=== PATIENT | female | born 1990 | race Caucasian/White ===

== ENCOUNTER → 2017-07-12 07:41 | Outpatient (CLI) | payer OTHER, SELFPAY ==
[2017-07-12 09:21] LABS: hCG Titer Quant., Serum 12537 mIU/mL (<9 non-preg)
== END ==
PROVIDERS: Family Provider Internal Medicine; PCP Internal Medicine; Visit Provider Obstetrics & Gynecology
DX: O20.0 Threatened abortion (principal); Z3A.00 Weeks of gestation of pregnancy not specified
CPT/HCPCS: 36415; 84702

== ENCOUNTER → 2017-07-20 09:10 | Outpatient (CLI) | payer OTHER, SELFPAY ==
[2017-07-20 10:03] LABS: hCG Titer Quant., Serum 23769 mIU/mL (<9 non-preg)
== END ==
PROVIDERS: Family Provider Internal Medicine; PCP Internal Medicine; Visit Provider Obstetrics & Gynecology
DX: O20.0 Threatened abortion (principal); Z3A.00 Weeks of gestation of pregnancy not specified
CPT/HCPCS: 36415; 84702

== ENCOUNTER → 2017-11-15 19:11 | Outpatient (CLI) | payer OTHER, SELFPAY ==
[2017-11-15 21:17] LABS: hCG Titer Quant., Serum 10 mIU/mL (<9 non-preg)
== END ==
PROVIDERS: Visit Provider Obstetrics & Gynecology
DX: O20.0 Threatened abortion (principal)
CPT/HCPCS: 36415; 84702

== ENCOUNTER → 2017-11-17 10:30 | Outpatient (CLI) | payer OTHER, SELFPAY ==
[2017-11-17 11:34] LABS: hCG Titer Quant., Serum 30 mIU/mL (<9 non-preg)
== END ==
PROVIDERS: Family Provider Internal Medicine; PCP Internal Medicine; Visit Provider Obstetrics & Gynecology
DX: O20.0 Threatened abortion (principal)
CPT/HCPCS: 36415; 84702

== ENCOUNTER → 2017-11-22 16:45 | Outpatient (CLI) | payer OTHER, SELFPAY ==
--- NOTE | 2017-11-22 16:45 | DT_ITS ---
This patient was seen during an EMR downtime November 19, 2017 - November 26, 2017. This patient may have a combination of paper and electronic documentation or all paper documentation. All documentation is viewable within the e-chart portion of [employer] for each patient visit.
[2017-11-27 01:27] LABS: hCG Titer Quant., Serum 31 mIU/mL (<9 non-preg)
== END ==
PROVIDERS: Family Provider Internal Medicine; PCP Internal Medicine; Visit Provider Obstetrics & Gynecology
DX: O09.299 Supervision of pregnancy with other poor reproductive or obstetric history, unspecified trimester (principal); Z3A.00 Weeks of gestation of pregnancy not specified
CPT/HCPCS: 36415; 84702

== ENCOUNTER → 2017-11-28 13:59 | Outpatient (CLI) | payer OTHER, SELFPAY ==
[2017-11-28 15:31] LABS: hCG Titer Quant., Serum 3 mIU/mL (<9 non-preg)
== END ==
PROVIDERS: Family Provider Internal Medicine; PCP Internal Medicine; Visit Provider Obstetrics & Gynecology
DX: O20.0 Threatened abortion (principal)
CPT/HCPCS: 36415; 84702

== ENCOUNTER 2018-09-15 21:38 | Emergency (ER) | payer OTHER, SELFPAY ==
[2018-09-15 21:39] VITALS: BP 112/64; PULSE 88; RESP 24; TEMP 36.8; O2SAT 100; BMI 24.4
--- NOTE | 2018-09-15 21:52 | ED.RN ---
CALLED FOR EKG PER RN REQUEST, NO OLD EKGS IN MUSE
--- NOTE | 2018-09-15 22:08 | EKG12_ITS ---
Test Reason : CP Blood Pressure : / mmHG Vent. Rate : 080 BPM Atrial Rate : 080 BPM P-R Int : 144 ms QRS Dur : 066 ms QT Int : 360 ms P-R-T Axes : 043 050 -14 degrees QTc Int : 415 ms Normal sinus rhythm Possible Left atrial enlargement T wave abnormality, consider inferior ischemia Abnormal ECG Confirmed by OLEG HORAN, CARLEEN ([id number]), news editor VAHE JIANG ([id number]) on 09/17/2018 1:32:23 PM Referred By: MISSY/KATHI Confirmed By:CARLEEN DEJESUS MD
--- NOTE | 2018-09-15 22:10 | RAD_ITS ---
STUDY: X-RAY CHEST REASON FOR EXAM: Female, 28 years old. Chest pain. TECHNIQUE: Single frontal view of the chest. COMPARISON: None. FINDINGS: There is elevation of the right hemidiaphragm. There is no focal consolidation. Normal size heart. Normal mediastinum and gary. Normal visualized pulmonary arteries. Normal visualized aortic arch and descending thoracic aorta. Normal visualized thoracic spine. Normal visualized ribs, clavicles, and shoulders. There is no demonstrated abnormality of the visualized soft tissue structures of the upper abdomen. RAD/Chest 1 View (Portable) IMPRESSION: No acute cardiopulmonary process. Electronically Signed: Cherri Ross MD at 22:50 EDT Tel , Service support ,
[2018-09-15 22:34] LABS: Absolute Lymphocyte Count 2.12 X10^3/ul (0.83-4.51); Absolute Neutrophil Count 5.7 X10^3/uL (2.0-7.7); Basophil# 0.02 X10^3/uL; Basophil% 0.2 % (0-1); Eosinophil# 0.07 X10^3/uL; Eosinophils% 0.8 % (0-5); Hematocrit 34.4 % (37-47); Hemoglobin 11.5 g/dl (12.0-15.0); Lymphocyte # 2.12 X10^3/ul (4.0); Lymphocyte % 24.2 % (19-41); Mean Corp Hgb Conc 33.4 g/gl (32-36); Mean Corpuscular Hgb 30.7 pg (27.0-32.0); Mean Corpuscular Volume 91.7 fL (81-99); Monocyte# 0.81 X10^3/uL; Monocyte% 9.2 % (0-10); Neutrophil # 5.73 X10^3/uL (2.7-7.7); Neutrophil % 65.4 % (47-70); POSITIVE COUNT NO; POSITIVE DIFFERENTIAL NO; POSITIVE MORPHOLOGY NO; Platelet Count 178 K/mm3 (150-450); RBC Distribution Width SD 50.3 fl (35.1-43.9); Red Blood Count 3.75 M/mm3 (4.2-5.4); White Blood Count 8.8 K/mm3 (4.4-11.0)
[2018-09-15 22:46] LABS: Anion Gap 8 (5-15); BUN 7 mg/dL (7-18); BUN/Creat Ratio 11.2 RATIO (10-20); Calcium,Total 8.4 mg/dL (8.5-10.1); Chloride 107 mmol/L (98-107); Creatinine, Serum 0.62 mg/dL (0.55-1.02); EST Glomerular Filtration Rate 119 mL/min (>60); Est Glom Filt Rate - Afr Amer 144 mL/min (>60); Estimated Creatinine Clearance 100.12 ml/min; Glucose 113 mg/dL (74-106); Potassium 3.5 mmol/L (3.5-5.1); Sodium Level 137 mmol/L (136-145)
[2018-09-15 22:49] LABS: D-Dimer Quantitative (DVT/PE) 1.15 FEU/ug/m (0.27-0.49)
--- NOTE | 2018-09-15 22:50 | ED.RN ---
DR. YOO AWARE OF ELEVATED DDIMER.
--- NOTE | 2018-09-15 22:53 | CT_ITS ---
We are attempting to reach Eder Rm MD to discuss findings. An addendum with communication details will be sent when the communication is complete. STUDY: CTA CHEST REASON FOR EXAM: Female, 28 years old. Shortness of breath RADIATION DOSAGE (If Supplied By Facility): CTDIvol = ( 8.12 ) mGy, DLP = ( 239.87 ) mGycm TECHNIQUE: The examination was performed with the intravenous administration of 75ml IV Isovue 370. Post-processing of the angiographic images was performed, with multiplanar reformation and 3D reconstruction. Individualized dose optimization techniques were used for this CT. COMPARISON: None. FINDINGS: Evaluation for pulmonary embolism is limited due to bolus timing. More prominent within the lower lobes. There is no pulmonary embolism within the main pulmonary arteries or lobar pulmonary arteries. There is no upper lobe segmental or proximal subsegmental pulmonary embolism identified. Evaluation of the segmental and subsegmental pulmonary arteries within the lower lobes is limited. There are areas which may represent artifact versus filling defects. Normal thoracic aorta and visualized great vessels. There is no demonstrated aortic dissection. Normal heart and pericardium. Normal mediastinum. Normal hilar regions. Normal visualized trachea and bronchi. The lungs are well expanded. Right lower lobe 4 mm calcified nodule likely granuloma. Normal pleura. Normal chest wall structures. Mild scoliotic curvature. Slight angulation of the sternum in relation to the thoracic spine. Mild decreased AP diameter of the mid chest. Normal visualized upper abdomen. CT/CTA Chest W/WO Contrast IMPRESSION: Evaluation for pulmonary embolism is limited due to bolus timing. More prominent within the lower lobes. There is no pulmonary embolism within the main pulmonary arteries or lobar pulmonary arteries. There is no upper lobe segmental or proximal subsegmental pulmonary embolism identified. Evaluation of the segmental and subsegmental pulmonary arteries within the lower lobes is limited. There are areas which may represent artifact versus filling defects. No aortic aneurysm or dissection. Electronically Signed: Zi Paul, at 0:12 EDT Tel , Service support ,
[2018-09-15] MEDS: 0.9% Normal Saline 1,000 ML 999 ML IV (23:13)
[2018-09-16] VITALS: BP 104/63; PULSE 88; RESP 18; O2SAT 96
--- NOTE | 2018-09-16 00:28 | ED.VISSUMM ---
- ER Visit Summary Date of Service: 09/16/18 Chief Complaint: Right upper chest pain History of Present Illness: The patient is a 28 F medical history of pleurisy. Patient is 37 weeks . AB 2 with there is being miscarriages. She is never had a DVT or PE. Her sister had a DVT after surgery. Patient states that on Sunday she had right upper back pain is now come across and has been right upper chest pain for the last 2 days. It is pleuritic in nature. She took Tylenol without relief. She does feel like she is slightly short of breath with it. She denies any hemoptysis. No fever or chills. No cough. No leg pain or swelling. Physical Examination: Vital signs are stable. Initial blood pressure 112/64. Pulse ox 100% on room air no hypoxia and her heart rate is 88. He is in no distress. HEENT exam unremarkable. Neck nontender no lymphadenopathy. No JVD. Lungs clear to auscultation bilaterally. Heart regular rhythm rate about 80 no murmur. Chest wall nontender. Abdomen soft. Gravid uterus nontender. Normal bowel sounds no peritoneal nontender without edema. No cords. Test Results: CBC shows a white count of 8. Hemoglobin 1.5. Chemistries normal. Troponin normal. D-dimer elevated at 1.15. Initial EKG sinus rhythm rate 80 with inverted T waves in lead III, aVF, V2 and V3. No [place]. No old EKG available for comparison. Chest x-ray normal. Normal cardiac silhouette. No infiltrate. CTA of the chest had a bolus timing issue but the radiologist could not see any signs of a PE in the right upper lobe or anywhere else on the scan. It was slightly limited in the bases. Emergency Department Course and Treatment: Patient treated with a liter normal saline due to the contrast. Repeat exam she is doing well. She will be discharged home. Treatment Plan: At all for pain. Follow-up with SURVEY RESEARCH TEACHER. Disposition: Discharge Impression: Acute right upper pleuritic chest pain suspect secondary to pleurisy This note was generated with ArtSetters[employer] software. It may contain incorrect words, spelling, and punctuation that were not noted in review of the chart prior to signing ED Disposition - Plan for ED Patient: Referrals: Chitra Mercedes MD [Primary Care Provider] -
--- NOTE | 2018-09-16 00:32 | ED.DCSUM_ITS ---
- ER Visit Summary Date of Service: 09/16/18 Chief Complaint: Right upper chest pain History of Present Illness: The patient is a 28 F medical history of pleurisy. Patient is 37 weeks . AB 2 with there is being miscarriages. She is never had a DVT or PE. Her sister had a DVT after surgery. Patient states that on Sunday she had right upper back pain is now come across and has been right upper chest pain for the last 2 days. It is pleuritic in nature. She took Tylenol without relief. She does feel like she is slightly short of breath with it. She denies any hemoptysis. No fever or chills. No cough. No leg pain or swelling. Physical Examination: Vital signs are stable. Initial blood pressure 112/64. Pulse ox 100% on room air no hypoxia and her heart rate is 88. He is in no distress. HEENT exam unremarkable. Neck nontender no lymphadenopathy. No JVD. Lungs clear to auscultation bilaterally. Heart regular rhythm rate about 80 no murmur. Chest wall nontender. Abdomen soft. Gravid uterus nontender. Normal bowel sounds no peritoneal nontender without edema. No cords. Test Results: CBC shows a white count of 8. Hemoglobin 1.5. Chemistries normal. Troponin normal. D-dimer elevated at 1.15. Initial EKG sinus rhythm rate 80 with inverted T waves in lead III, aVF, V2 and V3. No [place]. No old EKG available for comparison. Chest x-ray normal. Normal cardiac silhouette. No infiltrate. CTA of the chest had a bolus timing issue but the radiologist could not see any signs of a PE in the right upper lobe or anywhere else on the scan. It was slightly limited in the bases. Emergency Department Course and Treatment: Patient treated with a liter normal saline due to the contrast. Repeat exam she is doing well. She will be discharged home. Treatment Plan: At all for pain. Follow-up with OPTICS MANUFACTURING TECHNICIAN. Disposition: Discharge Impression: Acute right upper pleuritic chest pain suspect secondary to pleurisy This note was generated with DogVac[employer]ation software. It may contain incorrect words, spelling, and punctuation that were not noted in review of the chart prior to signing ED Disposition - Plan for ED Patient: Referrals: Chitra Mercedes MD [Primary Care Provider] -
--- NOTE | 2018-09-16 00:32 | ED.DEP ---
ED Disposition - Plan for ED Patient: Disposition: Home or Assisted Living Instructions: ED Chest Pain Pleurisy Referrals: Chitra Mercedes MD [Primary Care Provider] - As Needed Marsha Montoya MD [STAFF PHYSICIAN] - As Needed Additional Instructions: Tylenol for pain. You may use limited Motrin.
[2018-09-16 00:46] VITALS: BP 109/64; PULSE 87; RESP 22; O2SAT 96
== END 2018-09-16 00:48 | disposition home or self-care (01) ==
PROVIDERS: Emergency Provider Emergency Medicine; Family Provider Internal Medicine; PCP Internal Medicine
DX: O26.893 Other specified pregnancy related conditions, third trimester (principal); R07.81 Pleurodynia; R06.02 Shortness of breath; R74.8 Abnormal levels of other serum enzymes; Z3A.37 37 weeks gestation of pregnancy
CPT/HCPCS: 71045; 71275; 80048; 84484; 85025; 85379; 93005; 96360; 96361; 99284; J7030; Q9967; A4216

== ENCOUNTER 2018-09-27 15:15 | Inpatient (IN) | payer OTHER, SELFPAY ==
[2018-09-27 15:41] VITALS: BMI 24.7
[2018-09-27 16:02] LABS: Absolute Neutrophil Count 6.9 X10^3/uL (2.0-7.7); Basophil# 0.02 X10^3/uL; Basophil% 0.2 % (0-1); Eosinophil# 0.04 X10^3/uL; Eosinophils% 0.4 % (0-5); Lymphocyte % 22.5 % (19-41); Mean Corp Hgb Conc 33.3 g/gl (32-36); Mean Corpuscular Hgb 30.5 pg (27.0-32.0); Mean Corpuscular Volume 91.6 fL (81-99); Mean Platelet Vol. 10.4 fl (6.2-12.0); Monocyte# 0.57 X10^3/uL; Monocyte% 5.8 % (0-10); Neutrophil # 6.91 X10^3/uL (2.7-7.7); Neutrophil % 70.7 % (47-70); Platelet Count 191 K/mm3 (150-450); RBC Distribution Width CV 14.9 % (11.6-14.6); RBC Distribution Width SD 50.3 fl (35.1-43.9); Red Blood Count 3.93 M/mm3 (4.2-5.4); White Blood Count 9.8 K/mm3 (4.4-11.0)
[2018-09-27 16:03] LABS: POSITIVE COUNT NO; POSITIVE DIFFERENTIAL NO; POSITIVE MORPHOLOGY NO
[2018-09-27] MEDS: Lactated Ringers 1,000 ML 50 ML IV ×3 (16:09→22:41)
--- NOTE | 2018-09-27 17:33 | PCM.HP.OB ---
History Date of Admission: 09/27/18 Final BILLY: 10/03/18 Final BILLY Source: US <20 weeks Gestational age: 39 Weeks and 1 Days History of this : This is a 28 year-old, @ 39.1 wks, SROM in office- clear. 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 Allergies No Known Allergies Allergy (Verified 09/15/18 21:41) Home Medications: Home Medications Vits [Prenatabs FA ] 1 tablet PO DAILY 05/11/14 Ferrous Sulfate [Iron] 1 mg PO DAILY 09/27/18 Smoking Status: Never smoker Alcohol: None Number of Fetus(es): 1 Heart Tracin mod mariaelena, + accels no decels TOCO Analysis: q2-3 min History Past Pregnancies: Past Pregnancies Delivery Date Name GA/Weeks Outcome Route Weight Infant Gender Labor Length Anesthesia Delivery Location Provider FOB Labs: A+, GBS neg, rub imm, HEP B neg, syphilis neg Expected Infant Delivery Method: Spontaneous Vaginal Review of Systems Constitutional: Denies: Anorexia Cardiovascular: Denies: Chest Pain Respiratory: Denies: Cough Physical Exam General: Alert, Oriented x3 Abdomen: Soft, Non Tender, Gravid Neurological: Cranial nerves II-XII grossly intact Estimated gestational size: Appropriate for gestational size Presentation: Cephalic Cervix Dilation (cm): 4 Station: -1 Effacement (%): 80 Assessment/Plan This is a 28 year-old, @ 39.1 wks, SROM in labor 1) admit to L&D 2) Monitor Fhr/TOco 3) anticipate 4) epidural if requested 5) pitocin if indicated
[2018-09-27] MEDS: fentaNYL-bupivacaine (epidural) 100 ML BAG EPIDURAL (19:30)
[2018-09-27] MEDS: Oxytocin 30 units/NS 500 ml 30 UNITS/500 ML IV.SOLN IV (21:45)
[2018-09-27] MEDS: Acetaminophen 325 MG Tablet PO (23:19)
--- NOTE | 2018-09-28 00:55 | PLAC_PTH ---
PATIENT: MAULIK REYNA I LOC: [facility] U#:[id number] AGE/SX: 28/F ROOM: WP003 RE09/27/[address]: Dr. Mandy Rahman, MDDOB: 1990 BED: 1 DIS: 09/29/2018 SPEC #: [id number] RECD: 09/28/18 03:22 STATUS: GENEVIEVE GILDA #: [id number] RICKY: 09/28/18 00:[address]: Mandy Rahman DEPT: SURGICAL PATHOLOGY RECD BY: Scooter Mendoza ENTERED: 09/30/18 13:03 SP TYPE: PLACENTA OTHR DR: Dr. Chitra Mercedes MD Tissues: Placenta, NOS Procedures: Surgery Specimen Level V HEADER OPERATION: Vaginal delivery PRE-OP DIAGNOSIS: Suspected triple I TISSUE SUBMITTED: Placenta MICROSCOPIC DIAGNOSIS Placenta: Placental disc - third trimester placenta (474 gm). Membranes - no pathologic diagnosis. Umbilical cord - three blood vessels and no pathologic diagnosis. SJ:zhou 10/01/18 MICROSCOPIC DESCRIPTION Slides are reviewed. GROSS DESCRIPTION SPECIMEN: PLACENTA / CLINICAL INFORMATION: A. Weight: 3.43 kg B. Gestational Age: 39 weeks C. Sex: Male PLACENTAL WEIGHT (POST FIXATION): 474 gm PLACENTAL DIMENSIONS: 24 x 14 x 2.5 cm PLACENTAL SHAPE: Disrupted and somewhat fragmented but appears complete. PLACENTAL WEIGHT FOR GESTATIONAL AGE: Within 10-99th percentile MEMBRANES - Present A. Insertion: Marginal B. Site of rupture from edge: At edge of placental disc C. Color of membrane: Maza-deluca D. Abnormalities: None UMBILICAL CORD - Present A. Color: Maza-deluca B. Insertion: Eccentric C. Length: 41 cm D. Diameter: 1.5 cm E. Number of vessels: Three F. Abnormalities: None PLACENTAL DISC - Present A. Color of surface: Maza-deluca B. surface abnormalities: None C. Maternal cotyledons: Intact with minimal tears D. Attached retro placental clot: No clot E. Cut surface: Dark red and spongy F. Lesions: None G. Separate clot: Absent SECTIONS SUBMITTED: 1. Umbilical cord ( end notched) 2. Membrane roll 3. Placental disc, and maternal surfaces 4. Placental disc, and maternal surfaces 5. Placental disc, and maternal surfaces AM:zhou 09/30/18 TC:4 CPT: 23802
[2018-09-28] MEDS: Oxytocin 30 units/NS 500 ml 30 UNITS/500 ML IV.SOLN 334 UNITS IV (00:57)
--- NOTE | 2018-09-28 01:18 | PCM.OPRPT ---
Vaginal Delivery Maternal Presentation: Spontaneous Rupture of Membranes Amniotic Membrane Rupture Type: - - spontaneous in office- ? high leak- still had large forebag Amniotic Fluid Description: Clear Final BILLY: 10/03/18 Gestational age: 39 Weeks and 2 Days Date of Procedure: 09/28/18 Pre-Operative Diagnosis: term gestation Post-Operative Diagnosis: live male infant, suspected triple I Surgery/ Procedure Performed: Spontaneous Vaginal Delivery Type of Anesthesia: Epidural Description of Procedure: of live male . Infant head and shoulders delivered with gentle downward traction and good maternal effort. vigorous at . placenta adherent to left cornua - removed manually to allow for complete delivery of placenta. pt temp prior to delivery 100.1F pt felt warm at manual removal- temp recheck was 101- Suspected triple I . will give 2 g ancef. Presentation: Vertex Placental Delivery Description: Manual Removal - stuck at left cornua Placenta Disposition: Sent to Pathology Cord Vessel Description: 3 Vessels Nuchal Cord Compression: Without compression Cord Entanglement: None Estimated Blood Loss: 250 Infant A gender: Male (1 minute): 8 (5 minute): 8 Episiotomy Description: None Laceration: Perineal Extension/lac - repaired with 3-0 rapide, 1st degree Medications given after delivery: IV Pitocin Complications: None
[2018-09-28] MEDS: Oxytocin 30 units/NS 500 ml 30 UNITS/500 ML IV.SOLN 167 UNITS IV (01:27)
[2018-09-28] MEDS: Ibuprofen 600 MG Tablet PO ×2 (01:50→14:27)
[2018-09-28] MEDS: Cefazolin 2 GM in 0.9% Normal Saline 100 ML IV (02:07)
[2018-09-28 03:23] LABS: Pathology Specimen OB SEE PATHOLOGY REPORT
[2018-09-28] MEDS: Methylergonovine 0.2 MG/ML Ampul IM ×2 (06:26→07:30)
--- NOTE | 2018-09-28 06:26 | NURSING ---
At 0540, pt requested to get up to bathroom and states she needed to void. Pt states she feels something coming out. Some half dollar sized clots noted, fundus firm U+1 and left of midline. Pt up to bathroom and voided 600cc, states she feels bladder is empty and reporting some dizziness. Pt to wheelchair after pad and underwear changed. Pt then moved to room 3. Pt's gown changed and then pt to bed from wheelchair. This RN had pt lay back to check bleeding. Fundus firm and large clots began to pass, equal to 75cc. This RN then contacted Angelina RN to come to room to assess bleeding. Pad changed and weighed 186cc. Dr. Camara then called and order received for methergine IM x1 and Dr. Camara will be around 0700. Trickling continued, new pad changed and weighed 132ml. Trickling continued, pad #4 weighed 20cc. total new blood loss equal to 413ml.
--- NOTE | 2018-09-28 07:00 | NURSING ---
0657 fundus massaged, firm u-1 and 236cc passed between bleeding and clots.
--- NOTE | 2018-09-28 07:15 | NURSING ---
Addendum entered by Deedee Arnold 09/28/18 07:38: Total EBL now 701cc Original Note: 0712 Dr. Camara on unit and updated that blood loss at [address] Camara in room to see pt. Manually removed several clots, will perform bedside US. 0701 Bedside US done. orders received, will watch bleeding.
--- NOTE | 2018-09-28 07:39 | PCM.PN.OB ---
Subjective: pt seen at bedside, doing well. pt reports good pain control. LOCHIA- passing clots and steady trickle of bleeding (i was notified by RN). pt denies CP, SOB ,dizziness. Breast feeding. Objective: Vaginal exam performed- Small clots expelled from lower uterine segment. Uterus firm on exam i did not feel any tissue remnants. Bedside ultrsaound performed- endometrial stripe thin - one area of hetergenous material - possible organized clot. Plan to continue to monitor- Give one more dose IM methergine. If bleeding persists today may consider OB curettage but at this time patient is stable and exam is not impressive. will continue with uterotonics. pt will get CBC at 10am. - Physical Exam General: Alert, Oriented x3 Abdomen: Soft, - - fundus firm- at level of umbilicus Extremities: No Calf Tenderness Neurological: Cranial nerves II-XII grossly intact Weight: 59.5 kg Body Mass Index (BMI) 24.7 Intake and Output for Last 24 Hours 09/26/18 09/27/18 09/28/18 23:59 23:59 23:59 Output Total 600 / 600 Balance -600 / -600 Laboratory Tests Past 24 Hrs 09/27/18 09/27/18 15:50 15:50 WBC 9.8 RBC 3.93 L Hgb 12.0 Hct 36.0 L MCV 91.6 MCH 30.5 MCHC 33.3 RDW 14.9 H RDW Differential 50.3 H Plt Count 191 MPV 10.4 Immature Gran % (Auto) 0.400 Neut % (Auto) 70.7 H Lymph % (Auto) 22.5 [place] % (Auto) 5.8 Eos % (Auto) 0.4 Baso % (Auto) 0.2 Absolute Neuts (auto) 6.9 Absolute Lymphs (auto) 2.20 Total Counted Not Reportable Blood Type A POSITIVE Antibody Screen NEGATIVE Medical Necessity - Tobacco Use Smoking Status: Never smoker Assessment/Plan PPD#1 - Suspect Triple I 1) continue to monitor bleeding- if does not slow with use of uterotonics may need to consider ob curettage but exam is unremarkable at this time 2) CBC 10am 3) IM methergine (x 2 total)- if needed will continue with PO 4) Monitor VS- had fever immediately after delivery s/p 2g ancef for manual removal and temp immediately pp 5) continue with Pain mgmt regimen
--- NOTE | 2018-09-28 07:42 | NURSING ---
Report given to Bong CHAVARRIA who is now assuming care.
[2018-09-28] MEDS: Acetaminophen 500 MG Tablet 1000 MG PO ×2 (09:50→20:28)
--- NOTE | 2018-09-28 09:55 | CASEMGMT ---
Social Work Brief Assessment - Labor and Delivery Unit Refer documentation below for further details. Date of Referral/Notification: 09/28/12 Time of Referral: 8:26a Referred By: NURSING Reason for Referral: HX OF PPD Date of Intervention: 09/28/18 Time of Intervention: 9:55A Informant: Medical record and mother of baby (MOB) History: MOB WITH HX OF PPD. STATES PRESCRIBED MEDICATION (DID NOT TAKE DURING ) AND WILL DISCUSS WITH DR. ZHANG WHEN APPROPRIATE TO RETURN ON MEDICATION SHE IS . MOB STATES KNOWS ALL SIGNS AND SYMPTOMS AND DOES NOT VOICE ANY CONCERNS. MOB DENIES ANY CURRENT DEPRESSION/ANXIETY. Assessment: MOB LIVES HOME WITH , SARA AND DAUGHTER JU. BOTH EMPLOYED AND WILL HAVE PROCESS CONTROL PROGRAMMER FOR BOTH CHILDREN FROM GRANDMOTHERS WHEN MOB RETURNS TO WORK. MOB REPORTS HAS ALL NEEDS MET FOR BABY. PRICING SPECIALIST IS DR. WADE. DISCUSSED CASE WITH NURSE. NO FURTHER NEEDS FROM THIS WORKER. Plan: HOME WITH FAMILY BEFORE. No further needs requested or indicated. -Radha Bradshaw, PATIENT ACCOUNTS CLERK, LEAD CARE MANAGER
[2018-09-28 10:00] VITALS: BP 103/64; PULSE 98; RESP 18; TEMP 37; O2SAT 97
[2018-09-28 10:26] LABS: Hematocrit 32.6 % (37-47); Hemoglobin 10.9 g/dl (12.0-15.0); Mean Corp Hgb Conc 33.4 g/gl (32-36); Mean Corpuscular Volume 92.6 fL (81-99); Mean Platelet Vol. 10.4 fl (6.2-12.0); Platelet Count 178 K/mm3 (150-450); RBC Distribution Width CV 14.9 % (11.6-14.6); RBC Distribution Width SD 49.2 fl (35.1-43.9); Red Blood Count 3.52 M/mm3 (4.2-5.4)
[2018-09-28 10:28] LABS: Scan Indicated on CBC? Y/N NO
[2018-09-28 12:00] VITALS: BP 101/61; PULSE 100; RESP 18; TEMP 37.6; O2SAT 97
[2018-09-28 16:19] VITALS: BP 99/59; PULSE 85; RESP 18; TEMP 36.9; O2SAT 97
[2018-09-28 20:30] VITALS: BP 99/54; PULSE 89; RESP 17; TEMP 36.9; O2SAT 97
[2018-09-29 02:00] VITALS: BP 92/62; PULSE 74; RESP 16; TEMP 36.6; O2SAT 97
[2018-09-29] MEDS: Senna/Docusate Sodium 1 Tablet PO (04:29)
[2018-09-29] MEDS: Ibuprofen 600 MG Tablet PO (04:30)
--- NOTE | 2018-09-29 07:59 | PCM.PN.OB ---
Subjective: pt seen at bedside, doing well. pt reports good pain control. lochia mild. Breast feeding well. - Physical Exam General: Alert, Oriented x3 Abdomen: Soft, Non Tender, Non-Distended, - - fundus firm Extremities: No Calf Tenderness Vital Signs Temp Pulse Resp BP Pulse Ox 97.9 F 74 16 92/62 97 09/29/18 02:00 09/29/18 02:00 09/29/18 02:00 09/29/18 02:00 09/29/18 02:00 Oxygen Delivery Method Room Air Weight: 59.5 kg Body Mass Index (BMI) 24.7 Intake and Output for Last 24 Hours 09/27/18 09/28/18 09/29/18 23:59 23:59 23:59 Output Total 1050 / 1050 Balance -1050 / -1050 Laboratory Tests Past 24 Hrs 09/28/18 10:15 WBC 15.0 H RBC 3.52 L Hgb 10.9 L Hct 32.6 L MCV 92.6 MCH 31.0 MCHC 33.4 RDW 14.9 H RDW Differential 49.2 H Plt Count 178 MPV 10.4 Medical Necessity - Tobacco Use Smoking Status: Never smoker Assessment/Plan PPD#1.5 (delivered 53 on 09/28/18) 1) dc home 2) instructions reviewed including bleeding precautions 3) pain mgmt
[2018-09-29 09:32] VITALS: BP 106/65; PULSE 86; RESP 18; TEMP 36.9; O2SAT 97
[2018-09-29 12:45] VITALS: BP 112/68; PULSE 78; RESP 18; TEMP 36.7; O2SAT 99
[2018-09-29 17:00] VITALS: BP 105/61; PULSE 80; RESP 18; TEMP 36.6; O2SAT 97
== END 2018-09-29 17:45 | disposition home or self-care (01) | DRG 807 ==
PROVIDERS: Admitting Provider Obstetrics & Gynecology; Family Provider Internal Medicine; PCP Internal Medicine; Referring Provider Obstetrics & Gynecology; Visit Provider Obstetrics & Gynecology
DX: O72.0 Third-stage hemorrhage (principal); O70.0 First degree perineal laceration during delivery; Z3A.39 39 weeks gestation of pregnancy; Z37.0 Single live birth
CPT/HCPCS: 59025; 59050; 85025; 85027; 86850; 86900; 88307; 99218; J7120; G0378

== ENCOUNTER 2019-03-23 07:43 | Emergency (ER) | payer OTHER, SELFPAY ==
[2019-03-23 07:44] VITALS: BP 102/68; PULSE 126; RESP 18; TEMP 37.6; O2SAT 99; BMI 18.8
--- NOTE | 2019-03-23 08:17 | RAD_ITS ---
STUDY: X-RAY CHEST REASON FOR EXAM: Female, 28 years old. Fever TECHNIQUE: PA and lateral views of the chest. COMPARISON: September 15, 2018 chest x-ray FINDINGS: The lower lungs are partially obscured by overlying breast tissue. The lungs are clear and expanded. There is no demonstrated pleural abnormality. Normal size heart. Normal mediastinum and gary. Normal visualized pulmonary arteries. Normal visualized aortic arch and descending thoracic aorta. Normal visualized thoracic spine. Normal visualized ribs, clavicles, and shoulders. There is no demonstrated abnormality of the visualized soft tissue structures of the upper abdomen. RAD/Chest PA and Lateral IMPRESSION: Normal x-ray examination of the chest. Electronically Signed: Jennifer Mckeon MD at 12:20 EDT Tel , Service support ,
--- NOTE | 2019-03-23 08:17 | CT_ITS ---
STUDY: CT BRAIN WITHOUT CONTRAST REASON FOR EXAM: Female, 28 years old. FEVER RADIATION DOSAGE (If Supplied By Facility): CTDIvol = ( 44.99 ) mGy, DLP = ( 745.49 ) mGycm TECHNIQUE: Transaxial CT imaging of the brain was performed without administration of intravenous contrast material. Individualized dose optimization techniques were used for this CT. COMPARISON: No relevant priors. FINDINGS: Normal soft tissue structures. Normal calvarium. Normal size ventricles and extra-axial spaces for the patient's age. Normal white matter tracts of the cerebral hemispheres. Normal basal ganglia and thalami. Normal brainstem. Normal cerebellum. There is no intracranial hemorrhage. There are no findings of an acute ischemic infarction. Normal visualized paranasal sinuses. CT/Brain/Head without Contrast IMPRESSION: Normal unenhanced CT scan of the brain. Electronically Signed: Fanny Stinson MD at 12:24 EDT Tel , Service support ,
--- NOTE | 2019-03-23 08:22 | ED.DCSUM_ITS ---
History of Present Illness Chief Complaint: Fever Informant: Patient, Family Onset: Weeks Current Severity: Mild Narrative: Patient is been complaining of fever body aches posterior cervical adenopathy for about 2 weeks, she is been evaluated at urgent care had a negative Monospot at one point time she was put on amoxicillin, 3 days later she developed a skin rash that was discontinued, she continued to have posterior cervical adenopathy temperatures to 102, headaches body aches, she is been taking Tylenol, Is had no chest pain no abdominal pain normal bowel bladder habits. She indicates she has a 5-month-old child at home who she is been breast-feeding without difficulty and yesterday she noticed that her right breast seems slightly sore and thought she saw some fluid come out with a milk that could be pus she spoke with her crozer operator and has been on dicloxacillin for 24 hours, she indicates she is persisting and having the body aches the posterior neck discomfort and the fevers and she presents for evaluation. In addition about a month ago her 5-month-old child presented to [facility] with bloody diarrhea and was found to have salmonella treated, mother has no abdominal pain normal bowel bladder habits and no real past history except as above Past Medical History - Allergies and Home Meds Allergies/Adverse Reactions: Allergies No Known Allergies Allergy (Verified 03/23/19 07:47) Primary Care Physician: Chitra Mercedes MD [Primary Care Provider] - Past Medical History: - - Includes as above Smoking Status: Never smoker Review of Systems General: Reports: Fever, Malaise. Denies: Chills, Sweats Eyes: Denies: Visual changes - bilaterally, Diplopia ENT: Reports: - - She has posterior auricular lymph nodes that are palpable cervical as well. Denies: Rhinorrhea, Sore throat Cardiovascular: Denies: Chest pain, Palpitations Respiratory: Denies: Dyspnea, Cough, Dyspnea on exertion Gastrointestinal: Denies: Abdominal pain, Nausea, Vomiting, Diarrhea, Melena, Hematochezia Genitourinary: Denies: Dysuria, Hematuria, Frequency Musculoskeletal: Reports: - - Right breast pain,. Denies: Back pain, Extremity Pain Skin: Denies: Rash, Wounds Neurological: Denies: Headache, Weakness, Numbness Physical Exam Vital Signs/Narrative: Vital Signs Temp Pulse Resp BP Pulse Ox 03/23/19 07:44 99.6 F H 126 H 18 102/68 99 General: Well nourished, Well developed, No Acute Distress Head: Normocephalic, Atraumatic Eyes: Perrl, EOMI ENT: Moist mucous membranes, No rhinorrhea, - - Has palpable posterior cervical and postauricular lymph nodes there about no more than half a centimeter there on both right and left she has full range of motion of her neck there is really no midline tenderness, there is no meningismus Neck: Supple, Nontender, - - There is positive adenopathy as above with no meningismus, she is sitting in a brightly lit room she is moving her eyes left and right full range of extraocular muscle movements without pain Cardiovascular: Regular rate, Regular rhythm, No murmurs Respiratory: No distress, CTA bilaterally, Chest nontender Abdomen: Soft, Nontender, Nondistended, Normal bowel sounds Back: Nontender, Normal Inspection Extremities: Nontender, No edema Skin: Normal color, No rash Neurological: Alert, Oriented x3, Cranial nerves II-XII grossly intact, Normal Strength, Normal Sensation, - - Her neurologic exam is normal there is no signs of meningitis. Negative for: Confused, Disoriented Psychological: Normal affect, Normal Mood Diagnostic/Tx/Re-eval - Medical Decision Making She is had 2 weeks of symptoms as above she has this right breast soreness drainage process that began yesterday but the other symptoms predate all the above she had exposure to a child who was diagnosed with Salmonella but she has no symptoms, at this time given all the above differentials rather extensive there is no signs of meningitis no signs of sepsis symptoms for 2 weeks at this time conference with screening labs are obtained, CT chest x-ray UA culture blood culture The patient screening labs are all generally unremarkable, my review of the two- view chest x-ray and head CT showed nothing acute see those formal reports, we d id send a flu swab that is negative, we spent a respiratory panel viral swab that result is not available per staff that will be available tomorrow I explained this to the patient, I also explained all of her test results with her we discussed the differential the causes of posterior cervical adenopathy we discussed the concept of meningitis, she has full range of motion of her neck, she has no meningismus just pain with palpation of the posterior cervical lymph nodes, she has no photophobia sitting in a brightly lit room without difficulty, she has full range of motion of her extraocular muscle movements without pain, we discussed lumbar puncture and she declined that , she indicates she is comfortable with discharge home to follow-up with her outpatient providers understand she will require additional management we did discuss if the adenopathy persists she may require a biopsy as a differential of cervical adenopathy in general is quite extensive This time the exact etiology of all of the above remains unclear, she will continue to use the dicloxacillin for the right breast soreness and drainage and she will see her crozer operator for that and otherwise follow-up with her outpati ent providers PCP for further management and return for change in symptoms Home stable Final impression Post cervical adenopathy, neck discomfort, febrile illness, etiology unclear, right breast inflammation infection ED Disposition - Plan for ED Patient: Diagnosis: Cervical adenopathy Instructions: FEBRILE ILLNESS, Uncertain Cause (Adult) Referrals: Chitra Mercedes MD [Primary Care Provider] - Additional Instructions: Please follow-up with your outpatient providers tomorrow, ask them to check the respiratory viral screen results that should be available tomorrow
[2019-03-23] MEDS: 0.9% Normal Saline 1,000 ML 1000 ML IV (09:04)
[2019-03-23] MEDS: proCHLORPERazine 10 MG/2 ML Vial IV (09:05)
[2019-03-23] MEDS: morphine 8 MG/ML Syringe IV (09:05)
[2019-03-23] MEDS: DiphenhydrAMINE 50 MG/ML Syringe 25 MG IV (09:05)
[2019-03-23 09:17] LABS: Hematocrit 39.6 % (37-47); Hemoglobin 13.1 g/dL (12.0-15.0); Lymphocyte % 14.7 % (19-41); Mean Corp Hgb Conc 33.1 g/dL (32-36); Mean Corpuscular Hgb 29.6 pg (27.0-32.0); Mean Corpuscular Volume 89.4 fL (81-99); Mean Platelet Vol. 10.4 fl (6.2-12.0); Neutrophil % 70.5 % (47-70); Platelet Count 214 K/mm3 (150-450); RBC Distribution Width CV 12.4 % (11.6-14.6); RBC Distribution Width SD 40.6 fl (35.1-43.9); Red Blood Count 4.43 M/mm3 (4.2-5.4); White Blood Count 10.5 K/mm3 (4.4-11.0)
[2019-03-23 09:18] LABS: Absolute Lymphocyte Count 1.54 X10^3/uL (0.83-4.51); Absolute Neutrophil Count 7.4 X10^3/uL (2.0-7.7); Basophil# 0.04 X10^3/uL; Basophil% 0.4 % (0-1); Eosinophil# 0.46 X10^3/uL; Eosinophils% 4.4 % (0-5); Lymphocyte # 1.54 X10^3/ul (4.0); Monocyte# 0.94 X10^3/uL; NRBC Flagged by Analyzer 0 % (0-5)
[2019-03-23 09:19] LABS: Color, Urine Yellow (Yellow); Glucose, Dipstick 100 mg/dl (Normal); Ketone-Dipstick 5 mg/dl (Negative); Leukocyte Esterase-Dipstick 25 /ul (Negative); Mucous, Urine 0 SEEN /hpf (<or=2+); Nitrite-Dipstick Negative (Negative); Occult Blood-Urine Negative /ul (Negative); Protein-Dipstick 15 mg/dl (Negative); Red Blood Cells-Urine 0 SEEN /hpf (0-5); Squamous Epithelial Cells - UA 0 SEEN /hpf (5-10); Urine Bilirubin Dipstick Negative (Negative); Urine Clarity Clear (Clear); Urine Urobilinogen Normal (Normal)
[2019-03-23 09:24] LABS: Bacteria RARE /hpf (None Seen); White Blood Cells 0-5 SEEN /hpf (0-5)
[2019-03-23 09:37] LABS: ALB/GLOB Ratio 1.2 RATIO (0.9-2.4); AST(SGOT) 16 U/L (15-37); Albumin, Serum 4.2 g/dL (3.2-5.0); BUN 15 mg/dL (7-18); BUN/Creat Ratio 18.1 RATIO (10-20); Calcium,Total 8.6 mg/dL (8.5-10.1); Creatinine, Serum 0.83 mg/dL (0.55-1.02); EST Glomerular Filtration Rate 86 mL/min (>60); Est Glom Filt Rate - Afr Amer 104 mL/min (>60); Estimated Creatinine Clearance 70.97 ml/min; Globulin 3.5 g/dL (2.2-4.2); Glucose 117 mg/dL (74-106); Lipase 238 U/L (73-393); Protein, Total 7.7 g/dL (6.4-8.2)
[2019-03-23 09:38] LABS: Alanine Aminotransfer ALT/SGPT 20 U/L (13-56); Alkaline Phosphatase 56 U/L (45-117); Anion Gap 7 (5-15); Chloride 109 mmol/L (98-107); Potassium 3.2 mmol/L (3.5-5.1); Sodium Level 142 mmol/L (136-145)
[2019-03-23 09:40] LABS: Internal QC Validated? YES +Cl - CLEAR BKGD; Monotest Negative (Negative)
[2019-03-23 09:41] LABS: Internal QC Validated? YES +Cl - CLEAR BKGD; Pregnancy, Serum, hCG Quali. NEGATIVE Negative
[2019-03-23 09:53] LABS: Lactic Acid 1.2 mmol/L (0.4-2.0)
[2019-03-23 10:00] VITALS: RESP 12
[2019-03-23] MEDS: Naproxen 250 MG Tablet 500 MG PO (12:57)
[2019-03-23] MEDS: Acetaminophen 500 MG Tablet 1000 MG PO (12:58)
[2019-03-23 13:00] VITALS: TEMP 39.3
== END 2019-03-23 13:04 | disposition home or self-care (01) ==
PROVIDERS: Emergency Provider Emergency Medicine; Family Provider Internal Medicine; PCP Internal Medicine
DX: R59.0 Localized enlarged lymph nodes (principal); N61.0 Mastitis without abscess; R50.9 Fever, unspecified; Z79.899 Other long term (current) drug therapy
CPT/HCPCS: 36415; 70450; 71046; 80053; 81001; 83605; 83690; 84703; 85025; 86308; 87040; 87086; 87633; 87804; 96361; 96374; 96375; 99285; J7030; A4216

== ENCOUNTER 2019-09-06 16:32 | Observation (INO) | payer OTHER, SELFPAY ==
[2019-09-06 15:15] VITALS: BMI 19.8
[2019-09-06 15:54] VITALS: BP 114/71; PULSE 105; RESP 18; TEMP 37.1; O2SAT 100
[2019-09-06 17:11] LABS: Absolute Lymphocyte Count 1.22 X10^3/uL (0.83-4.51); Absolute Neutrophil Count 6.1 X10^3/uL (2.0-7.7); Basophil# 0.04 X10^3/uL; Basophil% 0.4 % (0-1); Eosinophil# 1.03 X10^3/uL; Eosinophils% 11.1 % (0-5); Hematocrit 34.5 % (37-47); Hemoglobin 11.4 g/dL (12.0-15.0); Lymphocyte # 1.22 X10^3/ul (4.0); Lymphocyte % 13.1 % (19-41); Mean Corpuscular Hgb 30.1 pg (27.0-32.0); Mean Platelet Vol. 10.6 fl (6.2-12.0); Monocyte# 0.82 X10^3/uL; Monocyte% 8.8 % (0-10); NRBC Flagged by Analyzer 0 % (0-5); Neutrophil # 6.12 X10^3/uL (2.7-7.7); Neutrophil % 66.1 % (47-70); Platelet Count 179 K/mm3 (150-450); RBC Distribution Width CV 12.6 % (11.6-14.6); RBC Distribution Width SD 41.4 fl (35.1-43.9); Red Blood Count 3.79 M/mm3 (4.2-5.4); White Blood Count 9.3 K/mm3 (4.4-11.0)
--- NOTE | 2019-09-06 17:20 | PCM.HP.BLA ---
History and Physical Date of Admission: 09/06/19 29-year-old female who gave to a son 11 months ago. Continues to nurse about twice a day. Has had recurrent mastitis, 3 episodes in the last 2 months. Most current episode started 4 days ago. She is allergic to penicillins, and during the previous episode of mastitis she had a reaction to Keflex with hives. 4 days ago a prescription was called in for erythromycin. However, despite symptomatic measures such as pumping frequently and emptying the breast and warm compresses, she continued to have fevers and feel myalgias. She was seen in the office yesterday and I could not appreciate an abscess. The was very red and tender. I changed her to Bactrim. She states that overall the achiness and flulike feeling she had is better, but the breast still has pain of a 7 out of 10. She feels like the firmness that was more in her axillary area yesterday is moved down to the inner medial quadrant now. She is getting a little bit of blood-tinged discharge and purulent appearing greenish discharge from the nipple along with milk. She called in and decision was made direct admit her and rule out abscess and give her IV antibiotics for mastitis and cellulitis that was not improving with outpatient management. Review of systems: General: Some myalgias and fevers Respiratory: Denies shortness of breath or cough denies URI symptoms : No dysuria or hematuria GI: Some nausea when pain is severe and she feels the myalgias, but no diarrhea or other issues. Past medical history: Significant for anxiety and mastitis Physical exam: General: Awake, alert, no acute distress Skin: Warm dry and intact Breasts: Right breast is enlarged and erythematous and warm compared to left breast. Left breast has no nodules or masses, no lymphadenopathy in the axillary area. Right breast is firm, the skin overlying the majority of the breast is erythematous. There is some firmness but no discrete fluctuance. There is no necrosis of the skin. Neither nipple is cracked but the right nipple is somewhat indented because of the engorgement of the right breast. No discrete lymphadenopathy in the right axillary area Assessment and plan: Mastitis of the right breast not responding to outpatient therapy. Recommend IV therapy with vancomycin. Will get an ultrasound to rule out abscess. If evidence of an abscess, will consider general surgery consult. Check CBC. Will give antipyretics. Patient can continue to pump and if breast milk is not bloody she keep it for home use. She is comfortable with plan.
[2019-09-06] MEDS: Ibuprofen 600 MG Tablet PO (17:32)
[2019-09-06 19:49] LABS: Anion Gap 7 (5-15); BUN 11 mg/dL (7-18); Calcium,Total 8.3 mg/dL (8.5-10.1); Chloride 109 mmol/L (98-107); Creatinine, Serum 0.61 mg/dL (0.55-1.02); EST Glomerular Filtration Rate 121 mL/min (>60); Est Glom Filt Rate - Afr Amer 147 mL/min (>60); Estimated Creatinine Clearance 100.41 ml/min; Glucose 114 mg/dL (74-106); Potassium 3.6 mmol/L (3.5-5.1); Sodium Level 141 mmol/L (136-145)
--- NOTE | 2019-09-06 20:06 | PCM.RX.CS ---
Consult Pharmacy has been consulted to manage selected antiobiotic: Vancomycin Type of Consult: New start Suspected Infection: Skin/Soft tissue Prior Doses of Antibiotics Received/Current Regimen: Medications Vancomycin HCl 750 mg/ Sodium (Chloride) 265 mls @ 250 mls/hr IV Q12H VIRA Discontinued Medications Vancomycin HCl 750 mg/ Sodium (Chloride) 265 mls @ 250 mls/hr IV X1 ONE Stop: 09/06/19 18:03 Last Admin: 09/06/19 18:40 Dose: Infused Labs: Sodium 141 mmol/L (136-145) 09/06/19 19:04 Potassium 3.6 mmol/L (3.5-5.1) 09/06/19 19:04 Chloride 109 mmol/L (98-107) H 09/06/19 19:04 Carbon Dioxide 25.0 mmol/L (21.0-32.0) 09/06/19 19:04 Anion Gap 7 (5-15) 09/06/19 19:04 BUN 11 mg/dL (7-18) 09/06/19 19:04 Creatinine 0.61 mg/dL (0.55-1.02) 09/06/19 19:04 Est GFR (MDRD) Af Amer 147 mL/min (>60) 09/06/19 19:04 Est GFR (MDRD) Non-Af 121 mL/min (>60) 09/06/19 19:04 BUN/Creatinine Ratio 18.0 RATIO (10-20) 09/06/19 19:04 Glucose 114 mg/dL (74-106) H 09/06/19 19:04 Weight used for dosin.6 kg Estimated Creatinine Clearance: 100 Goal Trough: 10-15 mcg/mL Pharmacy Plan for Drug Dosing: Pharmacy Service will continue to monitor and adjust dosing as required. Follow-Up Labs: Trough Vancomycin Labs to be done on [date and time ordered]: 09/08/19 @0500
[2019-09-06] MEDS: Acetaminophen 500 MG Tablet 1000 MG PO (21:53)
[2019-09-06] MEDS: Venlafaxine XR 37.5 MG Capsule PO (21:53)
[2019-09-06 21:54] VITALS: BP 117/69; PULSE 88; RESP 16; TEMP 36.8; O2SAT 99
[2019-09-07 03:54] VITALS: BP 92/57; PULSE 93; RESP 16; TEMP 36.7; O2SAT 98
[2019-09-07] MEDS: Acetaminophen 500 MG Tablet 1000 MG PO ×2 (04:57→13:16)
[2019-09-07 06:43] LABS: Absolute Lymphocyte Count 1.51 X10^3/uL (0.83-4.51); Absolute Neutrophil Count 3.1 X10^3/uL (2.0-7.7); Basophil# 0.02 X10^3/uL; Basophil% 0.3 % (0-1); Eosinophil# 1.14 X10^3/uL; Eosinophils% 18.2 % (0-5); Hematocrit 33.9 % (37-47); Lymphocyte # 1.51 X10^3/ul (4.0); Lymphocyte % 24.2 % (19-41); Mean Corp Hgb Conc 32.4 g/dL (32-36); Mean Corpuscular Hgb 29.3 pg (27.0-32.0); Mean Corpuscular Volume 90.2 fL (81-99); Mean Platelet Vol. 10.7 fl (6.2-12.0); Monocyte# 0.47 X10^3/uL; Monocyte% 7.5 % (0-10); NRBC Flagged by Analyzer 0 % (0-5); Neutrophil # 3.09 X10^3/uL (2.7-7.7); Neutrophil % 49.5 % (47-70); Platelet Count 179 K/mm3 (150-450); RBC Distribution Width CV 12.8 % (11.6-14.6); RBC Distribution Width SD 42.5 fl (35.1-43.9); Red Blood Count 3.76 M/mm3 (4.2-5.4); White Blood Count 6.3 K/mm3 (4.4-11.0)
--- NOTE | 2019-09-07 09:01 | US_ITS ---
STUDY: ULTRASOUND BREAST - RIGHT REASON FOR EXAM: Female, 29 years old. Redness mastoiditis right breast on antibiotics TECHNIQUE: Axial and longitudinal images of the RIGHT breast were performed with a high resolution ultrasound transducer. # OF IMAGES: 110 COMPARISON: None. FINDINGS: RIGHT Breast: There is a lesion in the left and midline medial upper quadrant. The lesion measures 2.4 x 1.4 x 0.7 cm in size. Clock notation: 12-1: o''clock position. Distance from nipple: cm. Posterior Enhancement: Yes. Posterior Shadowing: None. Margins: Sharp and smooth. Echogenicity: Hypoechoic. In the subareolar region there are multiple dilated lactating distended ducts with internal echogenicity. US/Breast Complete Unilateral IMPRESSION: There are multiple distended lactating appearing ducts. However there is a 12:00 axis focal distended duct with internal echogenicity without shadowing suggesting this may be a focally blocked duct potentially early galactocele. An early infection of the duct is not excluded. The remainder of the distended ducts within the subareolar region demonstrate milk stasis potentially blocked ducts or early infection. Recommend follow to clearing. ASSESSMENT CATEGORY: BIRADS Category 3: Probably Benign - Short-Interval Follow-up Suggested. A letter regarding these results will be sent to the patient by the facility within 30 days. Electronically Signed: Donnie Crain, at 8:29 EDT , Service support ,
[2019-09-07 09:15] VITALS: BP 109/72; PULSE 70; RESP 14; TEMP 36.8; O2SAT 98
[2019-09-07] MEDS: Ibuprofen 600 MG Tablet PO (09:22)
[2019-09-07 15:10] VITALS: BP 108/71; PULSE 89; RESP 18; TEMP 36.8; O2SAT 100
--- NOTE | 2019-09-07 15:43 | PN.OBGYN_ITS ---
Subjective: Pain in breast much reduced. Gets milk w/ pumping then at the end getting blood tinged purulent looking discharge. No fevers or chills - Physical Exam Vitals/I&O's: Vital Signs Temp Pulse Resp BP Pulse Ox 98.3 F 89 18 108/71 100 09/07/19 15:10 09/07/19 15:10 09/07/19 15:10 09/07/19 15:10 09/07/19 15:10 Oxygen Delivery Method Room Air Weight: 47.6 kg Body Mass Index (BMI) 19.8 Intake and Output for Last 24 Hours 09/05/19 09/06/19 09/07/19 23:59 23:59 23:59 Intake Total 506 / 1306 2186 / 2186 Balance 506 / 1306 2186 / 2186 General: Alert, Cooperative, No apparent distress Extremities: No edema Skin: - - Right breast is much less indurated, still mildly tender, now no increased warmth. No significant erythema. Now there are 2 nodularities, 1 at approximately 2:00 and one at approximately 4-5 o'clock in the right breast. Moderately tender. I cannot appreciate significant fluctuance. Nipple is less indented. Small amount of clear to white fluid expressed from the nipple on exam. Microbiology Past 72 Hours 09/06/19 16:30 Fluid - Other Gram Stain - Final 09/06/19 16:30 Fluid - Other Body Fluid Culture - Preliminary Staphylococcus aureus Alpha Hemolytic Streptococcus Laboratory Results 09/06/19 17:00: WBC 9.3, RBC 3.79 L, Hgb 11.4 L, Hct 34.5 L, MCV 91.0, MCH 30.1, MCHC 33.0, RDW Std Deviation 41.4, RDW Coeff of Tom 12.6, Plt Count 179, MPV 10.6, Immature Gran % (Auto) 0.500, Neut % (Auto) 66.1, Lymph % (Auto) 13.1 L, Lumpkin % (Auto) 8.8, Eos % (Auto) 11.1 H, Baso % (Auto) 0.4, Absolute Neuts (auto) 6.1, Absolute Lymphs (auto) 1.22, Nucleated RBC % 0 09/06/19 19:04: Sodium 141, Potassium 3.6, Chloride 109 H, Carbon Dioxide 25.0, Anion Gap 7, BUN 11, Creatinine 0.61, Estim Creat Clear Calc 100.41, Est GFR (MDRD) Af Amer 147, Est GFR (MDRD) Non-Af 121, BUN/Creatinine Ratio 18.0, Glucose 114 H, Calcium 8.3 L 09/07/19 06:08: WBC 6.3, RBC 3.76 L, Hgb 11.0 L, Hct 33.9 L, MCV 90.2, MCH 29.3, MCHC 32.4, RDW Std Deviation 42.5, RDW Coeff of Tom 12.8, Plt Count 179, MPV 1 0.7, Immature Gran % (Auto) 0.300, Neut % (Auto) 49.5, Lymph % (Auto) 24.2, Lumpkin % (Auto) 7.5, Eos % (Auto) 18.2 H, Baso % (Auto) 0.3, Absolute Neuts (auto) 3.1, Absolute Lymphs (auto) 1.51, Nucleated RBC % 0 Current Medications Acetaminophen (Tylenol) 1,000 mg PO Q8 [facility] Last Admin: 09/07/19 13:16 Dose: 1,000 mg Documented by: Diphenhydramine HCl (Benadryl) 25 mg IV Q6H PRN PRN PRN Reason: ITCHING Docusate Sodium (Colace) 100 mg PO BID PRN PRN PRN Reason: Constipation Glucagon () 1 mg IM .X1 PRN PRN Reason: Hypoglycemia Sodium Chloride () 250 mls @ 15 mls/hr IV .[id number] PRN PRN Reason: Saline Flush Last Infusion: 09/07/19 09:24 Dose: Infused Documented by: Sodium Chloride () 250 mls @ 15 mls/hr IV .[id number] PRN PRN Reason: Additional IVPB Infusion Vancomycin IV Pharmacy to Dose (1 ea/ Sodium Chloride) 500 mls @ 250 mls/hr IV PRN PRN; Protocol PRN Reason: Rx to Dose Dextrose (Dextrose 10%-Water) 250 mls @ 999 mls/hr IV .Q16M PRN; Protocol PRN Reason: HYPOGLYCEMIA Vancomycin HCl 750 mg/ Sodium (Chloride) 265 mls @ 250 mls/hr IV Q12H [facility] Last Infusion: 09/07/19 06:52 Dose: Infused Documented by: Ibuprofen (Motrin) 600 mg PO Q4H PRN PRN PRN Reason: Pain Score 1-10/Temp > 100.7 F Last Admin: 09/07/19 09:22 Dose: 600 mg Documented by: Ondansetron HCl (Zofran) 4 mg IV Q8H PRN PRN PRN Reason: NAUSEA/VOMITING Oxycodone HCl (Oxyir) 5 mg PO Q4H PRN PRN PRN Reason: breakthrough pain Prochlorperazine Edisylate (Compazine Iv) 5 mg IV Q4H PRN PRN PRN Reason: Breakthrough nausea/vomiting Sodium Chloride () 10 - 40 ml IV UD PRN PRN Reason: SALINE FLUSH Venlafaxine HCl (Effexor Xr) 37.5 mg PO QHS [facility] Last Admin: 09/06/19 21:53 Dose: 37.5 mg Documented by: Zolpidem Tartrate (Ambien (Generic)) 5 mg PO QHS PRN PRN PRN Reason: INSOMNIA Medical Necessity - Tobacco Use Smoking Status: Never smoker Assessment/Plan Hospital day #2 status post admission for acute mastitis not responding to outpatient therapy. Patient is afebrile with normal white count. Pain and erythema and induration are much improved. Preliminary culture so shows staph and strep. Final cultures will take another 2 to 3 days. We will be discharged home on Bactrim. If any fevers or chills, or pain or erythema start to worsen again she should contact the office or provider surgical product sales consultant immediately. At this point, I do not feel the fluid collections on the ultrasound are significant enough to warrant drainage. However will likely have her follow-up with general surgery as an outpatient to ensure resolution. Encouraged patient to finish entire 14-day course of Bactrim. She is comfortable with this plan.
[2019-09-07] MEDS: 0.9% Saline Lock 10 ML Syringe IV (17:40)
--- NOTE | 2019-09-07 19:17 | DCINST_ITS ---
You will use the following diet at home:: No restrictions Discharge Activity: Return to Normal Activity Call your doctor if you observe: Fever of 101 or Higher, Calf discomfort, Uncontrolled pain Additional Instructions: Please call office if continuing breast pain, or temperature >100.4 F Allergies/Adverse Reactions: Allergies amoxicillin Allergy (Verified 09/06/19 15:17) Hives cephalexin Allergy (Verified 09/06/19 15:18) Hives Medications to take at Discharge Vits [Prenatabs FA ] 1 tablet PO DAILY 05/11/14 Venlafaxine HCl [Venlafaxine HCl ER] 1 tab PO QHS 03/23/19 Primary Care Physician: Chitra Mercedes MD [Primary Care Provider] - Test Results: Test results from this visit will be discussed in further detail at your follow- up appointment, if applicable.
== END 2019-09-07 19:30 | disposition home or self-care (01) ==
PROVIDERS: Admitting Provider Obstetrics & Gynecology; PCP Internal Medicine; Referring Provider Obstetrics & Gynecology; Visit Provider Obstetrics & Gynecology
DX: N61.0 Mastitis without abscess (principal); F41.9 Anxiety disorder, unspecified; Z79.899 Other long term (current) drug therapy
CPT/HCPCS: 36415; 76641; 80048; 85025; 87070; 87075; 87077; 87186; 87205; 96365; 96366; 99218; J7050; A4216; G0378; G0379